=== PATIENT | female | born 1965 | race Caucasian/White ===

== ENCOUNTER 2021-06-08 20:24 | Emergency (ER) | payer BC ==
[~2021-06-08] VITALS: Ht 154.9 cm; Wt 54.0 kg
[~2021-06-08 20:24] MED LIST: AUGMENTIN875TAB PO; B-12 DOTS500 MCG SL; BUPROPION HCL100 MG PO; FLONASE NASAL50 MCG; MULTIVITAMI1 PO; SPRINTEC 2828 DAY PO; SYNTHROID25 MCG PO
[2021-06-08 23:19] LABS: HEMATOCRIT 38.7 % (37.0-47.0); HEMOGLOBIN 12.3 g/dl (12.0-16.0); IMMATURE GRANULOCYTES 0.2 % (0.0-5.0); MEAN CELL VOLUME 97.5 fL CALC (80.0-100.0); MEAN CORPUSCULAR HGB CONC 31.8 g/dL CAL (32.0-36.0); NEUT# 3.7 thou/uL (2.00-7.15); RED BLOOD COUNT 3.97 mill/uL (4.20-5.60); RED CELL DISTRI WIDTH 11.8 % (11.5-15.5)
[2021-06-08] MEDS ORDERED: PRILOSEC20 MG/CAP PO (23:19)
[2021-06-08 23:40] LABS: ALBUMIN 4.4 g/dL (3.2-5.0); ALKALINE PHOSPHATASE 65 u/l (38-126); AMYLASE 111 u/l (30-110); ANION GAP 13 (6-22 (CALC)); BILIRUBIN, TOTAL 0.3 mg/dL (0.0-1.4); BUN 14 mg/dL (7-17); BUN/CREATININE RATIO 19 (12-20 (CALC)); CARBON DIOXIDE 28 mmol/l (22-30); CHLORIDE 101 mmol/l (95-108); CREATININE 0.7 mg/dL (0.5-1.0); GFR > 60 ML/MIN (>=60 (CALC)); GFR FOR AFR.AMER. > 60 ML/MIN (>=60 (CALC)); LIPASE 251 u/l (23-300); POTASSIUM 4.2 mmol/l (3.5-5.1); SGOT/AST 37 u/l (14-36); SODIUM 138 mmol/l (137-146); TOTAL PROTEIN 8.2 g/dL (6.3-8.2)
[2021-06-08 23:41] LABS: ACT PARTIAL THROMBO TIME 31.8 SECONDS (20.0-32.5); INTERNATIONAL NORMALIZED RATIO 1.1 RATIO (0.7-1.3); PROTHROMBIN TIME 11.6 SECONDS (9.0-12.5)
[2021-06-08 23:52] LABS: MYOGLOBIN 22 ng/mL (0 - 62)
[2021-06-08 23:53] LABS: URINE BILIRUBIN - DIPSTICK NEGATIVE (NEGATIVE); URINE BLOOD DIPSTICK NEGATIVE (NEGATIVE); URINE COLOR YELLOW; URINE GLUCOSE - DIPSTICK NEGATIVE (NEGATIVE); URINE KETONE NEGATIVE (NEGATIVE); URINE LEUK ESTERASE NEGATIVE (NEGATIVE); URINE PH 6.5 (4.5-8.0); URINE PROTEIN - DIPSTICK NEGATIVE (NEG-TRACE); URINE UROBILINOGEN - DIPSTICK 0.2 E.U./dL (0.2)
[2021-06-08 23:54] LABS: URINE NITRITE - DIPSTICK NEGATIVE (Negative)
[2021-06-09] MEDS ORDERED: PROMETHAZINE HY25 M1 PO (01:12)
[2021-06-09 01:47] VITALS: BP 116/60
== END 2021-06-09 01:48 | disposition home or self-care (01) | DRG 177 ==
LOC: ED 20:24
PROVIDERS: Family Medicine
DX: U07.1 COVID-19 (principal); J12.82 Pneumonia due to coronavirus disease 2019; E03.9 Hypothyroidism, unspecified
CPT/HCPCS: Q9967

== ENCOUNTER 2023-02-03 16:39 | Emergency (ER) | payer BC ==
[~2023-02-03] VITALS: Ht 154.9 cm; Wt 62.1 kg
[~2023-02-03 16:39] MED LIST changes: +PRILOSEC20 MG/CAP PO; +PROMETHAZINE HY25 M1 PO
[2023-02-03 17:46] LABS: BASO% 0.3 % (0-3); EOS% 0.9 % (0-8); HEMATOCRIT 34.1 % (37.0-47.0); HEMOGLOBIN 10.9 g/dl (12.0-16.0); IMMATURE GRANULOCYTES 0.3 % (0.0-5.0); LYMPH% 27.7 % (15-41); MEAN CELL VOLUME 95.5 fL CALC (80.0-100.0); MEAN CORPUSCULAR HGB 30.5 pG CALC (26.0-32.0); MONO% 6.7 % (2-13); NEUT# 4.32 thou/uL (2.00-7.15); NEUT% 64.1 % (42-76); RED BLOOD COUNT 3.57 mill/uL (4.20-5.60)
[2023-02-03 18:03] LABS: ALBUMIN 4.5 g/dL (3.2-5.0); ALKALINE PHOSPHATASE 51 u/l (38-126); ANION GAP 12 (6-22 (CALC)); BILIRUBIN, TOTAL 0.3 mg/dL (0.02-1.3); BUN 17 mg/dL (7-17); BUN/CREATININE RATIO 17 (12-20 (CALC)); CARBON DIOXIDE 25 mmol/l (22-30); CHLORIDE 107 mmol/l (95-108); GFR FOR AFR.AMER. > 60 ML/MIN (>=60 (CALC)); GFR OTHER RACES 58 ML/MIN (>=60 (CALC)); POTASSIUM 3.6 mmol/l (3.5-5.1); SGOT/AST 28 u/l (14-36); SODIUM 140 mmol/l (137-146); TOTAL PROTEIN 7.9 g/dL (6.3-8.2)
[2023-02-03 18:33] LABS: TSH, 3RD GENERATION 1.17 uIU/mL (0.47 - 4.68)
[2023-02-03 19:05] VITALS: BP 159/79
== END 2023-02-03 19:22 | disposition home or self-care (01) | DRG 305 ==
LOC: ED 16:39
PROVIDERS: Family Medicine
DX: I10 Essential (primary) hypertension (principal); E03.9 Hypothyroidism, unspecified; K21.9 Gastro-esophageal reflux disease without esophagitis